=== PATIENT | male | born 1960 | race Caucasian/White ===

== ENCOUNTER 2019-10-22 23:22 | Emergency (ER) | payer OTHER ==
[~2019-10-22] VITALS: Ht 165.1 cm; Wt 83.9 kg
[2019-10-22 23:33] VITALS: Ht 165.1 cm; Wt 83.9 kg
[2019-10-23 04:25] VITALS: BP 129/69
== END 2019-10-23 04:25 | disposition home or self-care (01) ==
LOC: ED 23:22
DX: L50.0 Allergic urticaria (principal); T36.3X5A Adverse effect of macrolides, initial encounter; E11.9 Type 2 diabetes mellitus without complications; Y92.89 Other specified places as the place of occurrence of the external cause
CPT/HCPCS: J0171; J1200; J2930; J3490; J7030; Q0092; U0003-CS